=== PATIENT | female | born 1955 | race Caucasian/White ===

== ENCOUNTER 2016-05-13 11:15 | Inpatient (IN) | payer MEDICARE ==
[~2016-05-13] VITALS: Ht 160 cm; Wt 60.1 kg
[2016-05-13] VITALS (8 sets, daily range): BP systolic 120–141; BP diastolic 76–87; PULSE 88–101; RESP 19–26; TEMP 98.9; O2SAT 89–99
[~2016-05-13 11:15] MED LIST: ALBU0.086 INH; FLUO20SO3 PO; METH2.5 PO; METH4TAB6 PO; MOXI400T4 PO; NORC7.5T PO; PRED20 PO; SOMA350T PO; VENTAER INH; VITA400C28
--- NOTE | 2016-05-13 12:12 | RADRPT ---
EXAM DATE/TIME: 05/13/2016 11:46 [facility] COMPARISON: CHEST SINGLE AP, August 13, 2014, 1:00. INDICATIONS : Chest pain, shortness of breath MEDICAL HISTORY : Chronic obstructive pulmonary disease. Emphysema. SURGICAL HISTORY : None. ENCOUNTER: Initial ACUITY: 1 day PAIN SCORE: 10/10 LOCATION: Bilateral chest FINDINGS: The heart is normal in size. The mediastinal contours are within normal limits. There patchy areas of predominantly interstitial infiltrate throughout both lungs. I believe this likely represents asymme tric interstitial edema. This could also represent interstitial fibrosis. An underlying pneumonia is not excluded. The bony structures are grossly intact. CONCLUSION: 1. Patchy interstitial opacification as above. This is worrisome and appeared previous dated 08/13/49 Irvin Pacheco MD on May 13, 2016 at 12:10 Board Certified Radiologist. This report was verified electronically.
[2016-05-13 13:01] LABS: AUTOMATED NEUTROPHIL # 14.6 TH/MM3 (1.8-7.7); BASOPHIL % 0.2 % (0.0-2.0); EOSINOPHIL # 0.1 TH/MM3 (0-0.4); EOSINOPHIL % 0.5 % (0.0-4.0); HEMO FLAGS DIFF FINAL; LYMPH % 9.8 % (9.0-44.0); LYMPHOCYTE # 1.7 TH/MM3 (1.0-4.8); MEAN CELL VOLUME 102.2 FL (80.0-100.0); MEAN CORPUSCULAR HEMOGLOBIN 34.1 PG (27.0-34.0); MEAN CORPUSCULAR HGB CONC 33.3 % (32.0-36.0); NEUT % 82.5 % (16.0-70.0); PLATELET COUNT 301 TH/MM3 (150-450); RED BLOOD COUNT 4.31 MIL/MM3 (4.00-5.30); RED CELL DISTRIBUTION WIDTH 15.7 % (11.6-17.2); WHITE BLOOD COUNT 17.7 TH/MM3 (4.0-11.0)
--- NOTE | 2016-05-13 16:13 | PD ---
HPI Chief Complaint: Cardiac Complaint Time Seen by Provider: 15:29 Travel History International Travel<30 days: No Contact w/Intl Traveler<30days: No Traveled to known affect area: No History of Present Illness HPI 60-year-old female complains of coughing congestion chest pain and shortness of breath. Patient states that he started having productive cough for the past several days. Patient started having sharp severe left-sided chest pain localized around the left rib cage area with radiation to the back. Patient states the pain is worse with deep breathing and coughing. Patient has intermittent fever since last night. Patient states that she has intermittent nausea vomiting since last night also. Patient states that the cough is persistent and productive. Patient has history hypertension, COPD. Patient is a smoker. Patient has family history of heart disease. Patient states that she has increasing shortness of breath since last night. On a scale of 1-10 the pain is a 9. PFSH Past Medical History Arthritis: Yes Asthma: Yes Autoimmune Disease: Yes Blood Disorders: No Anxiety: Yes Depression: Yes Cancer: No Cardiac Catheterization: No Cardiovascular Problems: Yes COPD: Yes Diabetes: No Diminished Hearing: No Endocrine: No Fibromyalgia: Yes GERD: Yes Genitourinary: Yes (INCONTINENCE) Hepatitis: Yes (HX OF HEP-C DIAGNOSIS, BUT SUBSEQUENTLY STATES DOES NOT HAVE) Hiatal Hernia: No Hypertension: Yes Immune Disorder: Yes Implanted Vascular Access Dvce: No Medical other: Yes (OSTEOPOROSIS, SPINAL STENOSIS, ARTHRITIS, NEUROPATHY, GASTROPARESIS) Musculoskeletal: Yes (FX'D RT ANKLE, FIBROMYALGIA, DEGEN DISC DISEASE, SPINAL SPURS.) Neurologic: No Reproductive: No Respiratory: Yes (ASTHMA, COPD) Thyroid Disease: No Tetanus Vaccination: > 5 Years Influenza Vaccination: No ?: Not Menopausal: Yes Past Surgical History Abdominal Surgery: Yes (APPENDECTOMY/ADHESIONS) AICD: No Appendectomy: Yes Arteriovenous Shunt: No Cardiac Surgery: No Coronary Artery Bypass Graft: No Gynecologic Surgery: Yes (HYSTERECTOMY) Hysterectomy: Yes Insulin Pump: No Joint Replacement: No Neurologic Surgery: No Oral Surgery: Yes (TONSILLECTOMY, TEETH REMOVED) Pacemaker: No Thoracic Surgery: No Tonsillectomy: Yes Other Surgery: Yes (ORAL SURGERY, HERNIA REPAIR, STENT IN GALBLADDER) Social History Alcohol Use: No Tobacco Use: Yes (1/2 PPD) Substance Use: Yes (MARIJUANA) Allergies-Medications (Allergen,Severity, Reaction): Coded Allergies: Adhesives (Verified Allergy, Severe, causes blisters, 05/13/16) Morphine (Unverified Adverse Reaction, Severe, GASTROPARESIS, 05/13/16) Reported Meds & Prescriptions Reported Meds & Active Scripts Active Deltasone (Prednisone) 20 Mg Tab 40 Mg PO DAILY 5 Days Avelox (Moxifloxacin HCl) 400 Mg Tab 400 Mg PO DAILY 7 Days Reported Vitamin D (Cholecalciferol) 400 Unit Cap Medrol 4 Mg Tab (Methylprednisolone) 4 Mg Tab 4 Mg PO DAILY Prozac (Fluoxetine HCl) 20 Mg/5 Ml Liqd 10 Mg PO DAILY Rheumatrex (Methotrexate) 2.5 Mg Tab 0 PO UNKNOWN DOSE [place] 7.5/325 (Hydrocodone/Acetaminophen 7.5/325) 7.5 Mg/325 Mg Tab 1 Tab PO Q4H PRN Proventil Ud 0.083% (2.5 Mg/3 Ml) (Albuterol Sulfate) 2.5 Mg/3 Ml Inha 2.5 Mg INH BID Soma (Carisoprodol) 350 Mg Tab 350 Mg PO Q6HPRN Ventolin Hfa (Albuterol Sulfate) 18 Gm Aero 2 Puff INH Q4HPRN * SHAKE WELL BEFORE USE * Review of Systems General / Constitutional: No: Fever Eyes: No: Visual changes HENT: No: Headaches Cardiovascular: Positive: Chest Pain or Discomfort Respiratory: Positive: Cough, Shortness of Breath Gastrointestinal: No: Abdominal Pain Genitourinary: No: Dysuria Musculoskeletal: No: Pain Skin: No Rash Neurologic: No: Weakness Psychiatric: No: Depression Endocrine: No: Polydipsia Hematologic/Lymphatic: No: Easy Bruising Physical Exam Narrative GENERAL: Well-nourished, well-developed patient. SKIN: Warm and dry. HEAD: Normocephalic. EYES: No scleral icterus. No injection or drainage. NECK: Supple, trachea midline. No JVD or lymphadenopathy. CARDIOVASCULAR: Regular rate and rhythm without murmurs, gallops, or rubs. RESPIRATORY: Breath sounds equal bilaterally. No accessory muscle use. Patient has diffuse rhonchi bibasilar. No wheezes. GASTROINTESTINAL: Abdomen soft, non-tender, nondistended. MUSCULOSKELETAL: No cyanosis, or edema. BACK: Nontender without obvious deformity. No CVA tenderness. Neurologic exam normal. Data Data Last Documented VS Vital Signs Date Time Temp Pulse Resp B/P Pulse Ox O2 Delivery O2 Flow Rate FiO2 05/13/16 16:00 94 19 95 Room Air 05/13/16 15:59 126/87 05/13/16 11:29 98.9 Orders Electrocardiogram (05/13/16 ) Complete Blood Count With Diff (05/13/16 11:32) Basic Metabolic Panel (Bmp) (05/13/16 11:32) Ckmb (Isoenzyme) Profile (05/13/16 11:32) Troponin I (05/13/16 11:32) Chest, Single Ap (05/13/16 11:32) Iv Access Insert/Monitor (05/13/16 11:32) Ecg Monitoring (05/13/16 11:32) Oxygen Administration (05/13/16 11:32) Oximetry (05/13/16 11:32) Blood Culture (05/13/16 16:02) D-Dimer (05/13/16 16:02) Influenzae A/B Antigen (05/13/16 16:02) Sodium Chlor 0.9% 1000 Ml Inj (Ns 1000 M (05/13/16 16:15) Hydromorphone Pf Inj (Dilaudid Pf Inj) (05/13/16 16:15) Ondansetron Inj (Zofran Inj) (05/13/16 16:15) Lactic Acid (05/13/16 16:02) Ceftriaxone Inj (Rocephin Inj) (05/13/16 16:15) Azithromycin Inj (Zithromax Inj) (05/13/16 16:15) Labs Laboratory Tests Test 05/13/16 12:00 White Blood Count 17.7 TH/MM3 Red Blood Count 4.31 MIL/MM3 Hemoglobin 14.7 GM/DL Hematocrit 44.0 % Mean Corpuscular Volume 102.2 FL Mean Corpuscular Hemoglobin 34.1 PG Mean Corpuscular Hemoglobin 33.3 % Concent Red Cell Distribution Width 15.7 % Platelet Count 301 TH/MM3 Mean Platelet Volume 8.3 FL Neutrophils (%) (Auto) 82.5 % Lymphocytes (%) (Auto) 9.8 % Monocytes (%) (Auto) 7.0 % Eosinophils (%) (Auto) 0.5 % Basophils (%) (Auto) 0.2 % Neutrophils # (Auto) 14.6 TH/MM3 Lymphocytes # (Auto) 1.7 TH/MM3 Monocytes # (Auto) 1.2 TH/MM3 Eosinophils # (Auto) 0.1 TH/MM3 Basophils # (Auto) 0.0 TH/MM3 CBC Comment DIFF FINAL Differential Comment MDM Medical Decision Making Medical Screen Exam Complete: Yes Emergency Medical Condition: Yes Interpretation(s) 16 12 PM. Last Impressions Chest X-Ray 05/13/16 1132 Signed Impressions: Service Date/Time: April 11:46 - CONCLUSION: 1. Patchy interstitial opacification as above. This is worrisome and appeared previous dated 08/13/49 Irvin Pacheco MD 16 12 PM. CBC WBC 17.7. MCV 102.2. 82 neutrophil. Differential Diagnosis Differential diagnosis including bronchitis, pleurisy, pneumonia, PE, pneumothorax, angina, NH. Narrative Course 60-year-old female with left sided chest pain, coughing congestion, fever and shortness of breath. Normal saline solution 70 cc an hour. Dilaudid 0.5 mg IV. Zofran 4 mg IV. Rocephin 1 g IV. Zithromax 500 mg IV. Diagnosis Primary Impression: Pneumonia Rian Cherry MD May 13, 2016 16:13
[2016-05-13] MEDS ORDERED: cefTRIAXone INJ 1,000 MG in SODIUM CHLORIDE 0.9% INJ 50 ML IV ONE (16:15)
[2016-05-13] MEDS: HYDROmorphone HCL PF 1 MG/ML VIAL IV PUSH ONE ×2 (16:15→16:45)
[2016-05-13] MEDS: SODIUM CHLOR 0.9% 1000 ML INJ 1,000 ML IV SCH ×2 (16:44→17:46)
[2016-05-13] MEDS: AZITHROMYCIN INJ 500 MG in SODIUM CHLOR 0.9% 250 ML INJ 250 ML IV ONE ×2 (16:44→17:46)
[2016-05-13] MEDS: ONDANSETRON HCL 4 MG/2 ML VIAL IV PUSH ONE ×2 (16:45→17:47)
[2016-05-13] MEDS ORDERED: ACETAMINOPHEN 325 MG TAB PO PRN (17:00)
[2016-05-13] MEDS ORDERED: ONDANSETRON HCL 4 MG/2 ML VIAL IVP PRN (17:00)
[2016-05-13] MEDS ORDERED: BISACODYL 10 MG SUPP PR PRN (17:00)
[2016-05-13] MEDS ORDERED: NALOXONE HCL 0.4 MG/ML AMP IV PRN (17:00)
[2016-05-13] MEDS ORDERED: RESP: ALBUTEROL 2.5 MG/IPRATROPIUM 0.5 MG NEB (PRN) NEB (17:00)
[2016-05-13] MEDS ORDERED: MAGNESIUM HYDROXIDE SUSP 30 ML CUP PO PRN (17:00)
[2016-05-13] MEDS ORDERED: VENTAER INH (17:12)
[2016-05-13] MEDS ORDERED: ALBU0.08 NEB ×2 (17:12→17:53)
[2016-05-13] MEDS ORDERED: VITA1000 PO (17:12)
[2016-05-13] MEDS ORDERED: MEDR4TAB PO (17:12)
[2016-05-13] MEDS ORDERED: FLUO-1 PO (17:12)
[2016-05-13] MEDS ORDERED: SOMA350T PO (17:12)
[2016-05-13] MEDS ORDERED: METH5INJ (17:14)
[2016-05-13] MEDS ORDERED: HYDROmorphone HCL PF 1 MG/ML VIAL IM ONE (17:15)
[2016-05-13] MEDS ORDERED: HYDR-3288 PO (17:16)
--- NOTE | 2016-05-13 17:42 | HHI.HP ---
HPI Service [facility] Hospitalists Primary Care Physician Harsh Pate MD Admission Diagnosis pneumonia Chief Complaint: SOB, chest pain Travel History International Travel<30 Days: No Contact w/Intl Traveler <30 Da: No Traveled to Known Affected Are: No History of Present Illness Mrs. Crum is a 60 y/o female with COPD, pulmonary fibrosis, RA, Fibromyalgia, HTN, and tobacco use. She presented to the ED at [facility] on 05/13/16 with complaints of cough, congestion, SOB and chest pain for the last week or so [place] . She states that in the past few days her cough has become productive and she will have [id number] vomiting. She has also been having sharp left-sided chest pain localized around the left rib cage area with radiation to the back, which is worse with deep breathing and coughing. She has had some subjective fevers since last night. Patient states that she has increasing shortness of breath since last night as well. Labs at admission revealed an elevated WBC count of 17.7. CXR noted patchy interstitial opacification in both lungs, likely representing interstitial edema vs. interstitial fibrosis. D-Dimer was elevated and CT Chest was performed. This revealed moderate to severe pulmonary fibrosis, including basilar predominance, subpleural honeycombing, irregular interlobular septal thickening and traction bronchiectasis. There is also some focal consolidation in the left lower lobe with air bronchograms that could represent a superimposed area of pneumonia or aspiration. Review of Systems Constitutional: COMPLAINS OF: Fever, Chills Eyes: DENIES: Eye pain Ears, nose, mouth, throat: COMPLAINS OF: Nasal discharge, Running Nose, Sinus Pain, DENIES: Hearing loss Respiratory: COMPLAINS OF: Cough, Wheezing, Sputum production, Shortness of breath Cardiovascular: COMPLAINS OF: Chest pain, DENIES: Lower Extremity Edema Gastrointestinal: DENIES: Abdominal pain, Nausea, Vomiting Integumentary: DENIES: Rash Neurologic: DENIES: Headache Psychiatric: DENIES: Confusion Past Family Social History Past Medical History COPD/Pulmonary fibrosis Asthma HTN Chronic Hepatitis C, genotype 1a Fibromyalgia Gastroparesis GERD Hx of colon polyps Chronic low back pain Depression Rheumatoid arthritis ?Monoclonal gammopathy of undetermined significance CHACHO Past Surgical History Tonsillectomy and adenoidectomy YANNA with BSO Appendectomy Liver biopsy Multiple Laparoscopic surgeries with JOSEPH Carpal tunnel surgery with median nerve decompression, right hand 1987 Laparoscopic repair of spigelian hernia Bladder surgery for suspension and resection of ureteral diverticulum ERCP with stent placement and removal EUS EGD/colonoscopy Reported Medications [place] 7.5-325 mg PO Q8HR PRN Methotrexate Inj Unknown Strength Inj Unknown Dose .XX WEEKLY Medrol (Methylprednisolone) 4 Mg Tab 4 Mg PO BID Prozac (Fluoxetine HCl) 10 Mg Cap 30 Mg PO DAILY Vitamin D-1000 (Cholecalciferol) 1,000 Unit Tab 2,000 Units PO DAILY Soma (Carisoprodol) 350 Mg Tab 350 Mg PO Q8HR PRN Albuterol Neb (Albuterol Sulfate) 2.5 Mg/3 Ml Neb 2.5 Mg NEB BID NEB PRN While awake Ventolin Hfa 18 GM Inh (Albuterol Sulfate) 90 Mcg/Act Aer 2 Puff INH Q4H PRN Allergies: Coded Allergies: Adhesives (Verified Allergy, Severe, causes blisters, 05/13/16) Morphine (Unverified Adverse Reaction, Severe, GASTROPARESIS, 05/13/16) Family History Father from metastatic pancreatic cancer Brother had pancreatic cancer Brother with hx of colon cancer Sister with breast cancer Social History (+)Tobacco use, smoked about 1/2-1ppd since age 10 (+)Marijuana use daily Hx of IV drug use, including crack cocaine and heroin Social alcohol use Pt is currently She is unable to work and is on disability Physical Exam Vital Signs Vital Signs Date Time Temp Pulse Resp B/P Pulse Ox O2 Delivery O2 Flow Rate FiO2 05/13/16 16:45 93 21 120/84 95 Room Air 05/13/16 16:00 94 19 95 Room Air 05/13/16 15:59 97 19 126/87 95 Room Air 05/13/16 15:39 95 Room Air 05/13/16 11:29 98.9 94 26 141/76 99 Physical Exam GENERAL: This is a well-nourished, well-developed patient, in no apparent distress. HEENT: Atraumatic. Normocephalic. No temporal or scalp tenderness. No scleral icterus. Airway patent. NECK: Trachea midline, supple, nontender. CARDIO: Regular. RESP: Coarse breath sounds and wheezing bilaterally ABD: +BS, soft, non-tender, nondistended. EXT: Extremities without clubbing, cyanosis, or edema. NEURO: Awake and alert. Motor and sensory grossly within normal limits. Normal speech. Laboratory Laboratory Tests Test 05/13/16 05/13/16 12:00 16:14 White Blood Count 17.7 Red Blood Count 4.31 Hemoglobin 14.7 Hematocrit 44.0 Mean Corpuscular Volume 102.2 Mean Corpuscular Hemoglobin 34.1 Mean Corpuscular Hemoglobin 33.3 Concent Red Cell Distribution Width 15.7 Platelet Count 301 Mean Platelet Volume 8.3 Neutrophils (%) (Auto) 82.5 Lymphocytes (%) (Auto) 9.8 Monocytes (%) (Auto) 7.0 Eosinophils (%) (Auto) 0.5 Basophils (%) (Auto) 0.2 Neutrophils # (Auto) 14.6 Lymphocytes # (Auto) 1.7 Monocytes # (Auto) 1.2 Eosinophils # (Auto) 0.1 Basophils # (Auto) 0.0 CBC Comment DIFF FINAL Differential Comment D-Dimer Quantitative (PE/DVT) 2.66 Lactic Acid Level 1.6 Date/Time Procedure Status Source Growth 05/13/16 16:17 Influenza Types A,B Antigen (ADRIENNE) - Final Complete Nasal Washing NEGATIVE FOR FLU A AND B ANTIGEN.... 05/13/16 16:15 Aerobic Blood Culture Received Blood Peripheral Pending 05/13/16 16:15 Anaerobic Blood Culture Received Blood Peripheral Pending Result Diagram: 05/13/16 1200 Imaging Last Impressions Chest X-Ray 05/13/16 1132 Signed Impressions: Service Date/Time: April 11:46 - CONCLUSION: 1. Patchy interstitial opacification as above. This is worrisome and appeared previous dated 08/13/49 Irvin Pacheco MD Septic Shock Reassessment Heart: Regular rate and rhythm Lungs: Course Skin: Warm Peripheral Pulses: Bounding Right Radial Bounding Left Radial Bounding Right Popliteal Bounding Left Popliteal Bounding Right Dorsalis Pedis Bounding Left Dorsalis Pedis Bounding Right Posterior Tibial Bounding Left Posterior Tibial Capillary Refill: <2 seconds Assessment and Plan Problem List: (1) Pulmonary interstitial fibrosis Status: Chronic Plan: - Pt with COPD and pulmonary fibrosis who presented to the ED with complaints of SOB, cough, congestion, left sided chest pain which is worse with deep breathing and subjective fevers - Her WBC count is elevated at admission. - CXR (05/13) -->Patchy interstitial opacification - Chest CT (05/13) --> Moderate to severe pulmonary fibrosis, including basilar predominance, subpleural honeycombing, irregular interlobular septal thickening and traction bronchiectasis. There is also some focal consolidation in the left lower lobe with air bronchograms that could represent a superimposed area of pneumonia or aspiration. - Consult pulmonary medicine - Zithromax - Ceftriaxone - IVF - Duonebs scheduled and PRN - Supplemental O2 - Pain meds PRN - IS - Acapella - Supportive care - DVT prophylaxis with SCDs (2) Pneumonia Status: Acute Plan: - See above. (3) COPD (chronic obstructive pulmonary disease) Status: Chronic Plan: - See above. (4) HTN (hypertension) Status: Chronic Plan: - Hold home meds for now - BP is stable - PRN Clonidine (5) Rheumatoid arthritis Status: Chronic Plan: - Hold Methotrexate - Pain meds PRN (6) Depression Status: Chronic Plan: - Cont. home meds Assessment and Plan Patient examined. Assessment and plan formulated with Shara Roe PA-C. I agree with the above. Physician Certification 2 Midnight Certification Type: Admission for Inpatient Services Order for Inpatient Services The services are ordered in accordance with Medicare regulations or non- Medicare payer requirements, as applicable. In the case of services not specified as inpatient-only, they are appropriately provided as inpatient services in accordance with the 2-midnight benchmark. Estimated LOS (days): 3 3 days is the estimated time the patient will need to remain in the hospital, assuming treatment plan goals are met and no additional complications. Post-Hospital Plan: Not yet determined Shara Roe May 13, 2016 17:42 Domo Sampson DO May 15, 2016 14:36
--- NOTE | 2016-05-13 17:46 | RADRPT ---
EXAM DATE/TIME: 05/13/2016 17:23 [facility] COMPARISON: No previous studies available for comparison. INDICATIONS : Chest pain and shortness of breath. RADIATION DOSE: 5.1 CTDIvol (mGy) MEDICAL HISTORY : Chronic obstructive pulmonary disease. Hepatitis C. Hypertension. SURGICAL HISTORY : Tonsillectomy. Appendectomy.Hysterectomy. ENCOUNTER: Initial ACUITY: 1 day PAIN SCALE: 4/10 LOCATION: Bilateral chest TECHNIQUE: Volumetric scanning of the chest was performed. Using automated exposure control and adjustment of t he mA and/or kV according to patient size, radiation dose was kept as low as reasonably achievable to obtain optimal diagnostic quality images. FINDINGS: There are moderate to severe changes of ulnar fibrosis. The fibrosis is mildly basilar predominant an d is characterized by multiple areas of honeycombing. There is irregular interlobular septal thickeni ng and some traction bronchiectasis and bronchiolectasis especially in the lower lobes and in the rig ht upper lobe. There is also some more focal consolidation in the left lower lobe laterally. There are moderate coronary calcifications. No significant pleural or pericardial effusion. No acute findings in the upper abdomen. CONCLUSION: 1. Moderate to severe pulmonary fibrosis. The pattern of fibrosis including basilar predominance, sub pleural honeycombing, irregular interlobular septal thickening and traction bronchiectasis and bronch iolectasis is most characteristic idiopathic pulmonary fibrosis or usual interstitial pneumonitis. 2. There is also some more focal consolidation in the left lower lobe with air bronchograms that coul d represent a superimposed area of pneumonia or aspiration. Richar Bullock MD on May 13, 2016 at 17:41 Board Certified Radiologist. This report was verified electronically.
[2016-05-13] MEDS ORDERED: ALPR0.5T3 PO (17:53)
[2016-05-13] MEDS ORDERED: FORT600S SQ (17:53)
[2016-05-13] MEDS ORDERED: LISI10TA3 PO (17:53)
[2016-05-13] MEDS ORDERED: IPRA0.02 NEB (17:53)
[2016-05-13] MEDS ORDERED: HYDR200T3 PO (17:53)
[2016-05-13] MEDS ORDERED: VENL37.54 PO (17:53)
[2016-05-13 18:24] LABS: ANION GAP 10 MEQ/L (5-15); BICARBONATE 24.7 MEQ/L (21.0-32.0); BLOOD UREA NITROGEN 7 MG/DL (7-18); CHLORIDE 95 MEQ/L (98-107); GLOMERULAR FILTRATION RATE 67 ML/MIN (>89); SODIUM (NA) 130 MEQ/L (136-145)
[2016-05-13] MEDS ORDERED: RESP: IPRATROPIUM 0.5 MG/2.5 ML NEB NEB PRN (18:30)
[2016-05-13 18:32] LABS: CREATINE KINASE 46 U/L (26-192)
[2016-05-13] MEDS: ACETAMINOPHEN/HYDROcodone 325 MG/7.5 MG TAB PO PRN (19:27)
[2016-05-13] MEDS: ALPRAZolam 0.5 MG TAB PO PRN (19:59)
[2016-05-13] MEDS ORDERED: FLUoxetine HCL 10 MG CAP PO ONE (20:00)
[2016-05-13] MEDS: HYDROXYCHLOROQUINE SULFATE 200 MG TAB PO SCH (21:19)
[2016-05-13] MEDS: SODIUM CHLORIDE 0.9% FLUSH 5 ML FLUSH FLUSH SCH (21:25)
[2016-05-14] VITALS (9 sets, daily range): BP systolic 89–125; BP diastolic 52–71; PULSE 69–96; RESP 18–26; TEMP 96.7–97.6; O2SAT 93–95
[2016-05-14] MEDS: ACETAMINOPHEN/HYDROcodone 325 MG/7.5 MG TAB PO PRN ×2 (06:10→17:06)
[2016-05-14] MEDS: RESP: ALBUTEROL 2.5 MG/IPRATROPIUM 0.5 MG NEB (SCH) NEB (08:00)
[2016-05-14] MEDS: ALPRAZolam 0.5 MG TAB PO PRN ×2 (08:06→23:25)
[2016-05-14] MEDS ORDERED: VENLAFAXINE HCL XR 37.5 MG CAP PO SCH (09:00)
[2016-05-14] MEDS: SODIUM CHLORIDE 0.9% FLUSH 5 ML FLUSH FLUSH SCH ×2 (09:00→23:31)
[2016-05-14] MEDS: AZITHROMYCIN 250 MG TAB PO SCH (09:43)
[2016-05-14] MEDS: CHOLECALCIFEROL (VIT D3) 1000 UNIT TAB PO SCH (09:43)
[2016-05-14] MEDS: HYDROXYCHLOROQUINE SULFATE 200 MG TAB PO SCH ×2 (09:43→23:25)
[2016-05-14] MEDS: FLUoxetine HCL 10 MG CAP PO SCH (09:44)
--- NOTE | 2016-05-14 10:52 | RADRPT ---
EXAM DATE/TIME: 05/14/2016 08:01 [facility] COMPARISON: CHEST SINGLE AP, May 13, 2016, 11:46. CT THORAX W/O CONTRAST, May 13, 2016, 17:23. INDICATIONS : Shortness of breath. MEDICAL HISTORY : Chronic obstructive pulmonary disease. Emphysema. Asthma. SURGICAL HISTORY : None. ENCOUNTER: Initial ACUITY: 3 days PAIN SCORE: 0/10 LOCATION: Bilateral chest FINDINGS: Moderate hyperinflation is evident. Persistent interstitial changes remain. A lot of the interstit ial changes have the appearance of chronic fibrosis. There is probably some mild superimposed conges tive failure on top of this. Clinical correlation suggested. Overall there has been some improvement with better aeration. CONCLUSION: 1. Coarse interstitial changes probably fibrosis. 2. Probably mild interstitial edema superimposed over top of the fibrosis. 3. Minimal consolidative changes in the left base. Jose Pacheco MD FACR on May 14, 2016 at 10:30 Board Certified Radiologist. This report was verified electronically.
[2016-05-14] MEDS ORDERED: LORazepam 2 MG/ML VIAL IV PUSH PRN (13:00)
[2016-05-14] MEDS: SODIUM CHLOR 0.9% 1000 ML INJ 1,000 ML IV SCH (13:20)
[2016-05-14] MEDS: cefTRIAXone INJ 1,000 MG in SODIUM CHLORIDE 0.9% INJ 100 ML IV SCH (13:21)
--- NOTE | 2016-05-14 14:14 | HHI.PR ---
Subjective Remarks Pt very anxious. Demanding more pain medication for her acute illness. Pt's HR & BP are NOT elevated. Objective Vitals Vital Signs Date Time Temp Pulse Resp B/P Pulse Ox O2 Delivery O2 Flow Rate FiO2 05/14/16 10:57 83 108/71 05/14/16 07:41 81 26 98/62 Room Air 05/14/16 07:41 Room Air 05/14/16 07:25 3.00 05/14/16 06:49 18 05/14/16 06:09 72 18 123/67 94 Room Air 05/14/16 04:55 69 18 89/52 95 Room Air 05/14/16 04:00 Room Air 05/14/16 00:19 88 18 125/70 95 Room Air 3 05/13/16 23:41 94 05/13/16 21:26 18 05/13/16 19:24 101 20 126/85 94 05/13/16 18:20 88 20 122/80 95 Nasal Cannula 2 05/13/16 17:58 95 Nasal Cannula 2 05/13/16 17:58 89 Room Air 05/13/16 16:45 93 21 120/84 95 Room Air 05/13/16 16:00 94 19 95 Room Air 05/13/16 15:59 97 19 126/87 95 Room Air 05/13/16 15:39 95 Room Air Result Diagram: 05/13/16 1200 05/13/16 1608 Imaging Last Impressions Chest X-Ray 05/13/16 1132 Signed Impressions: Service Date/Time: April 11:46 - CONCLUSION: 1. Patchy interstitial opacification as above. This is worrisome and appeared previous dated 08/13/49 Irvin Pacheco MD Chest CT 05/13/16 0000 Signed Impressions: Service Date/Time: April 17:23 - CONCLUSION: 1. Moderate to severe pulmonary fibrosis. The pattern of fibrosis including basilar predominance, subpleural honeycombing, irregular interlobular septal thickening and traction bronchiectasis and bronchiolectasis is most characteristic idiopathic pulmonary fibrosis or usual interstitial pneumonitis. 2. There is also some more focal consolidation in the left lower lobe with air bronchograms that could represent a superimposed area of pneumonia or aspiration. Richar Bullock MD Objective Remarks GENERAL: This is a well-nourished, well-developed patient, in no apparent distress. CARDIOVASCULAR: Regular rate and rhythm without murmurs, gallops, or rubs. RESPIRATORY: decreased air movement x b/l. b/l rhonchi GASTROINTESTINAL: Abdomen soft, non-tender, nondistended. Normal active bowel sounds MUSCULOSKELETAL: Extremities without clubbing, cyanosis, or edema. NEURO: Alert & Oriented x4 to person, place, time, situation. Moves all ext x4 A/P Problem List: (1) Pulmonary interstitial fibrosis Status: Chronic Plan: - Pt with COPD and pulmonary fibrosis who presented to the ED with complaints of SOB, cough, congestion, left sided chest pain which is worse with deep breathing and subjective fevers - Her WBC count is elevated at admission. - CXR (05/13) -->Patchy interstitial opacification - Chest CT (05/13) --> Moderate to severe pulmonary fibrosis, including basilar predominance, subpleural honeycombing, irregular interlobular septal thickening and traction bronchiectasis. There is also some focal consolidation in the left lower lobe with air bronchograms that could represent a superimposed area of pneumonia or aspiration. - await pulmonary medicine consult - Zithromax - Ceftriaxone - Duonebs scheduled and PRN - currently stable on RA - Pain meds PRN - Pt seems to have significant anxiety component and likely narcotic dependency issues - I will start prn ativan, but do NOT believe that pt would benefit from increased narcotics pt's BP is trending low and do NOT want to further suppress her pulmonary status - IS - Acapella - Supportive care - anticipate discharge to home in 1-2 days. - DVT prophylaxis with SCDs (2) Pneumonia Status: Acute Plan: - See above. (3) COPD (chronic obstructive pulmonary disease) Status: Chronic Plan: - See above. (4) HTN (hypertension) Status: Chronic Plan: - Hold home meds for now - BP is stable - PRN Clonidine (5) Rheumatoid arthritis Status: Chronic Plan: - Hold Methotrexate - Pain meds PRN (6) Depression Status: Chronic Plan: - Cont. home meds Domo Sampson DO May 14, 2016 14:14
--- NOTE | 2016-05-14 17:12 | EKG ---
Date Performed: 05/13/2016 Time Performed: 11:57:01 PTAGE: 60 years EKG: Sinus rhythm LEFT ATRIAL ENLARGEMENT NONSPECIFIC ST & T-WAVE ABNORMALITY Compared to prior tracing no significant change ABNORMAL ECG PREVIOUS TRACING : 08/13/2014 01.23 DOCTOR: Naveed Wu Interpretating Date/Time 05/14/2016 17:01:39
[2016-05-14] MEDS: methylPREDNISolone SOD SUCC 40 MG/1 ML VIAL IV SCH (23:26)
[2016-05-15] VITALS (9 sets, daily range): BP systolic 83–133; BP diastolic 56–77; PULSE 66–97; RESP 17–20; TEMP 95.7–98.8; O2SAT 92–97
[2016-05-15] MEDS: ACETAMINOPHEN/HYDROcodone 325 MG/7.5 MG TAB PO PRN ×3 (01:35→21:54)
[2016-05-15 01:38] LABS: BLOOD GAS BASE EXCESS -0.7 mmol/L (-2-2); BLOOD GAS CARBOXYHEMOGLOBIN 2.2 % (0-4); BLOOD GAS HCO3 24 mmol/L (22-26); BLOOD GAS METHEMOGLOBIN 0.8 % (0-2); BLOOD GAS O2 HGB SATURATION 76 % (90-100); BLOOD GAS PCO2 41 mmHg (38-42); BLOOD GAS PO2 47 mmHg (61-120); BLOOD GAS TOTAL HGB 19.7 G/DL (12.0-16.0); TEMP CORR TO 98.6
[2016-05-15 01:40] LABS: CRITICAL VALUE YES; FIO2 21 %; OXYGEN DEVICE ROOM AIR
[2016-05-15 01:41] LABS: DRAW SITE RT RADIAL; NUMBER OF ARTERIAL PUNCTURES 1; STAT NO; ULNAR PULSE PRESENT
[2016-05-15 06:45] LABS: BASOPHIL % 0.2 % (0.0-2.0); EOSINOPHIL % 0.1 % (0.0-4.0); HEMATOCRIT 37.2 % (35.0-46.0); HEMO FLAGS DIFF FINAL; LYMPH % 4.4 % (9.0-44.0); LYMPHOCYTE # 0.4 TH/MM3 (1.0-4.8); MEAN CELL VOLUME 101.7 FL (80.0-100.0); MEAN CORPUSCULAR HEMOGLOBIN 34.5 PG (27.0-34.0); MONO % 2.1 % (0.0-8.0); NEUT % 93.2 % (16.0-70.0); PLATELET COUNT 258 TH/MM3 (150-450); RED BLOOD COUNT 3.66 MIL/MM3 (4.00-5.30); RED CELL DISTRIBUTION WIDTH 15.9 % (11.6-17.2); WHITE BLOOD COUNT 8.6 TH/MM3 (4.0-11.0)
[2016-05-15] MEDS: SODIUM CHLORIDE 0.9% FLUSH 5 ML FLUSH FLUSH PRN (07:04)
[2016-05-15] MEDS: methylPREDNISolone SOD SUCC 40 MG/1 ML VIAL IV SCH ×2 (07:04→12:13)
[2016-05-15 07:08] LABS: MAGNESIUM 2.3 MG/DL (1.5-2.5); POTASSIUM 4.3 MEQ/L (3.5-5.1)
--- NOTE | 2016-05-15 07:51 | MB ---
cc: HENRRY MARTINEZ DR. DATE OF CONSULTATION: 05/14/2016 REASON FOR CONSULTATION: Respiratory insufficiency with pulmonary fibrosis and chronic obstructive pulmonary disease. HISTORY OF PRESENT ILLNESS: This is a 60-year-old lady who has had a past history for pulmonary fibrosis, chronic obstructive pulmonary disease and rheumatoid arthritis with fibromyalgia, she has been a smoker for over 40 years. The patient was unable to quit, she presented to the emergency room with cough, congestion, shortness of breath, wheezing and chest tightness. The patient has had pain along both sides of her chest radiating into the back and this got worse with taking deep breaths. She was also having some fevers and chills and thus came to the emergency room a chest CT was done upon arrival which showed no evidence of pulmonary emboli but had moderately severe pulmonary fibrosis with basilar predominance and honeycombing and interlobular septal thickening with bronchiectasis. There was some focal consolidation in the left lower lobe suggesting pneumonia. The patient is coughing but brings up very little mucus. Denies fevers at this time. No hemoptysis. No headaches or blackouts. PAST HISTORY The patient's past history has included history for chronic obstructive pulmonary disease. Chronic bronchitis Pulmonary fibrosis History of asthma Prior history of hypertension. She has had hepatitis C, Genotype 1a. History of gastroparesis. Colon polyps Depression Rheumatoid arthritis Obstructive sleep apnea. The patient has monoclonal gammopathy. PAST SURGICAL HISTORY: 1. Includes tonsillectomy and adenoidectomy 2. Total abdominal hysterectomy with salpingo-oophorectomy. 3. Appendectomy 4. Liver biopsy 5. History of repair of hernia 6. Bladder surgery with suspension 7. History for colonoscopy 8. Endoscopic retrograde cholangiopancreatography. MEDICATIONS: 1. Medrol 4 mg b.i.d. 2. soma compound 350 mg every 8 hours 3. albuterol neb q.i.d. 4. methotrexate 6 tablets daily 5. [place] 7 mg p.r.n. 6. Prozac 30 mg a day. ALLERGIES MORPHINE ADHESIVE TAPE FAMILY HISTORY Father of pancreatic cancer, one brother with pancreatic cancer and another brother with colon cancer and the sister with breast cancer. HABITS The patient smoked half to one-pack per day for over 50 years and marijuana use daily. history of cocaine abuse. Alcohol abuse moderate. REVIEW OF SYSTEMS Other system review the patient has lost weight. She has dizziness, postnasal drip, cough and wheezing, epigastric distress. No nausea, vomiting, no urinary symptoms. No leg or calf muscle pains. She has some joint pains of her extremities and denies skin lesions. PHYSICAL EXAMINATION IN GENERAL: This is a thinly built, middle-aged white female who is alert, pale in no acute distress. VITAL SIGNS: Blood pressure 125/80, pulse 94, respirations 20, temperature 97.5. HEAD, EYES, EARS, NOSE, AND THROAT: Head normocephalic. Pupils reactive. Sclerae are injected. Tongue is moist. Throat is mildly injected. NECK: The neck is supple. No bruits or thyroid enlargement. CHEST: Equal movements with distant breath sounds. Wheezes are scattered bilaterally prolonged expirations with crackles at the lung bases. HEART: The heart sounds are regular S1-S2. No murmur. No S3. ABDOMEN: The abdomen is soft, benign. No masses or organomegaly or tenderness. Bowel sounds active. EXTREMITIES: Extremities with no edema. Reflexes 1+ with no gross motor deficits. NEUROLOGIC: Cranial nerves grossly intact. RECTUM: The rectal exam is deferred. SKIN: No lesions. IMPRESSION 1. Chronic obstructive pulmonary disease with chronic bronchitis and acute exacerbation. 2. Extensive pulmonary fibrosis with bronchiectasis. 3. Nicotine dependency. 4. Anxiety and depression. PLAN The patient will be maintained on O2 at 2 liters nebulized DuoNeb solution added q.i.d., Symbicort 160 x 4.5, 2 puffs twice daily. A Chest x-ray will be repeated, a pulmonary function study will be done at the bedside. Sputum will be sent for Gram stain and culture and she will be placed on Rocephin 1 gram IV daily and Zithromax 500 mg IV daily. Arterial blood gas to be done on room air and O2, continued after that. The patient was counseled about quitting cigarette smoking. Thank you Dr. Sampson for this consultation. MD NAEL Denis/kelly /11:39 PM /7:43 AM
[2016-05-15] MEDS: RESP: ALBUTEROL 2.5 MG/IPRATROPIUM 0.5 MG NEB (SCH) NEB ×3 (08:28→19:53)
[2016-05-15] MEDS: AZITHROMYCIN 250 MG TAB PO SCH (09:17)
[2016-05-15] MEDS: cefTRIAXone INJ 1,000 MG in SODIUM CHLORIDE 0.9% INJ 100 ML IV SCH (09:17)
[2016-05-15] MEDS: CHOLECALCIFEROL (VIT D3) 1000 UNIT TAB PO SCH (09:17)
[2016-05-15] MEDS: HYDROXYCHLOROQUINE SULFATE 200 MG TAB PO SCH ×2 (09:17→21:54)
[2016-05-15] MEDS: FLUoxetine HCL 10 MG CAP PO SCH (09:17)
[2016-05-15] MEDS: ALPRAZolam 0.5 MG TAB PO PRN ×2 (09:18→21:53)
[2016-05-15] MEDS: SODIUM CHLORIDE 0.9% FLUSH 5 ML FLUSH FLUSH SCH ×2 (09:19→21:57)
--- NOTE | 2016-05-15 14:37 | HHI.PR ---
Subjective Remarks Entered pt room with floor nurse. Pt too busy on the phone to talk with me today. Objective Vitals Vital Signs Date Time Temp Pulse Resp B/P Pulse Ox O2 Delivery O2 Flow Rate FiO2 05/15/16 12:00 97.7 82 20 91/56 92 05/15/16 08:30 94 21 05/15/16 08:00 95.7 69 17 104/63 94 05/15/16 04:00 97.7 66 18 89/64 96 83/58 05/15/16 00:00 96.7 89 18 104/68 95 05/14/16 20:54 96.7 89 18 104/68 95 05/14/16 18:00 92 05/14/16 17:00 97.6 96 22 109/66 94 05/14/16 15:00 88 24 108/59 93 Nasal Cannula 2 05/14/16 05/14/16 05/15/16 15:00 23:00 07:00 Intake Total 120 ml Balance 120 ml Intake Oral 120 ml # Voids 5 Result Diagram: 05/15/16 0546 05/15/16 0546 Imaging Last Impressions Chest X-Ray 05/13/16 1132 Signed Impressions: Service Date/Time: April 11:46 - CONCLUSION: 1. Patchy interstitial opacification as above. This is worrisome and appeared previous dated 08/13/49 Irvin Pacheco MD Chest CT 05/13/16 0000 Signed Impressions: Service Date/Time: April 17:23 - CONCLUSION: 1. Moderate to severe pulmonary fibrosis. The pattern of fibrosis including basilar predominance, subpleural honeycombing, irregular interlobular septal thickening and traction bronchiectasis and bronchiolectasis is most characteristic idiopathic pulmonary fibrosis or usual interstitial pneumonitis. 2. There is also some more focal consolidation in the left lower lobe with air bronchograms that could represent a superimposed area of pneumonia or aspiration. Richar Bullock MD Objective Remarks GENERAL: This is a well-nourished, well-developed patient, in no apparent distress. CARDIOVASCULAR: Regular rate and rhythm without murmurs, gallops, or rubs. RESPIRATORY: decreased air movement x b/l. b/l rhonchi GASTROINTESTINAL: Abdomen soft, non-tender, nondistended. Normal active bowel sounds MUSCULOSKELETAL: Extremities without clubbing, cyanosis, or edema. NEURO: Alert & Oriented x4 to person, place, time, situation. Moves all ext x4 A/P Problem List: (1) Pulmonary interstitial fibrosis Status: Chronic Plan: - comgmt with Pulmonary Medicine - Pt with COPD and pulmonary fibrosis who presented to the ED with complaints of SOB, cough, congestion, left sided chest pain which is worse with deep breathing and subjective fevers - Her WBC count is elevated at admission. - CXR (05/13) -->Patchy interstitial opacification - Chest CT (05/13) --> Moderate to severe pulmonary fibrosis, including basilar predominance, subpleural honeycombing, irregular interlobular septal thickening and traction bronchiectasis. There is also some focal consolidation in the left lower lobe with air bronchograms that could represent a superimposed area of pneumonia or aspiration. - IV solumedrol - Zithromax - Ceftriaxone - Duonebs scheduled and PRN - currently stable on RA - Pain meds PRN - Pt seems to have significant anxiety component and likely narcotic dependency issues - prn benzodiazepine - blood culture --> NGTD - IS - Acapella - Supportive care - anticipate discharge to home in 1-2 days. - DVT prophylaxis with SCDs (2) Pneumonia Status: Acute Plan: - See above. (3) COPD (chronic obstructive pulmonary disease) Status: Chronic Plan: - See above. (4) HTN (hypertension) Status: Chronic Plan: - Hold home meds for now - BP is stable - PRN Clonidine (5) Rheumatoid arthritis Status: Chronic Plan: - Hold Methotrexate - Pain meds PRN (6) Depression Status: Chronic Plan: - Cont. home meds Domo Sampson DO May 15, 2016 14:37
--- NOTE | 2016-05-15 18:43 | HHI.PR ---
Subjective Remarks Feels better. Less cough and no wheezing. Sputum is thick. No fever. Objective Vital Signs Date Time Temp Pulse Resp B/P Pulse Ox O2 Delivery O2 Flow Rate FiO2 05/15/16 16:00 97.4 97 18 121/77 95 05/15/16 12:00 97.7 82 20 91/56 92 05/15/16 08:30 94 21 05/15/16 08:00 95.7 69 17 104/63 94 05/15/16 04:00 97.7 66 18 89/64 96 83/58 05/15/16 00:00 96.7 89 18 104/68 95 05/14/16 20:54 96.7 89 18 104/68 95 I/O 05/14/16 05/14/16 05/14/16 05/15/16 05/15/16 05/15/16 07:00 15:00 23:00 07:00 15:00 23:00 Intake Total 120 ml 480 ml Balance 120 ml 480 ml Intake Oral 120 ml 480 ml # Voids 5 2 # Bowel Movements 1 Result Diagram: 05/15/16 0546 05/15/16 0546 Objective Remarks IN GENERAL: This is a thinly built, middle-aged white female who is alert, pale in no acute distress. VITAL SIGNS: Blood pressure 125/80, pulse 94, respirations 20, temperature 97.5. HEAD, EYES, EARS, NOSE, AND THROAT: Head normocephalic. Pupils reactive. Sclerae are injected. Tongue is moist. Throat is mildly injected. NECK: The neck is supple. No bruits or thyroid enlargement. CHEST: Equal movements with distant breath sounds. Wheezes are scattered bilaterally prolonged expirations with crackles at the lung bases. HEART: The heart sounds are regular S1-S2. No murmur. No S3. ABDOMEN: The abdomen is soft, benign. No masses or organomegaly or tenderness. Bowel sounds active. EXTREMITIES: Extremities with no edema.Has clubbing of all Extremities. NEUROLOGIC: Cranial nerves grossly intact.Reflexes 1+ with no gross motor deficits. RECTUM: The rectal exam is deferred. SKIN: No lesions. Assessment and Plan Assessment and Plan Impression: 1. COPD with acute exacerbation. 2. Pulmonary Fibrosis. 3.Nicotine Dependancy. 4. Rheumatoid Arthritis. Plan ; 1. Continue antibiotics, Rocephin , Zithro. 2. Nebs qid , duoneb. 3. Cont Solumedrol 40 mg IV Q6H. 4. PFT in am. 5. Symbicort 160/4.5 Mcg , 2 puffs bid. 6. CBc,BMP in am. 7. Add Hycodan Cough syrup 5 CC QID Prn. Lolita Ulloa MD May 15, 2016 18:43
[2016-05-15] MEDS ORDERED: HYDROcodone 5 MG/HOMATROPINE 1.5 MG SYRUP 5 ML CUP PO PRN (18:45)
[2016-05-16] VITALS: BP 116/79; PULSE 90; RESP 22; TEMP 97.9; O2SAT 96
[2016-05-16] MEDS: methylPREDNISolone SOD SUCC 40 MG/1 ML VIAL IV SCH ×3 (00:56→12:12)
[2016-05-16] MEDS: SODIUM CHLORIDE 0.9% FLUSH 5 ML FLUSH FLUSH PRN ×2 (00:57→05:49)
[2016-05-16 05:30] VITALS: BP 122/81; PULSE 72; RESP 16; TEMP 98.8; O2SAT 96
[2016-05-16] MEDS: FLUoxetine HCL 10 MG CAP PO SCH (08:07)
[2016-05-16] MEDS: ACETAMINOPHEN/HYDROcodone 325 MG/7.5 MG TAB PO PRN (08:07)
[2016-05-16] MEDS: ALPRAZolam 0.5 MG TAB PO PRN (08:08)
[2016-05-16] MEDS: CHOLECALCIFEROL (VIT D3) 1000 UNIT TAB PO SCH (08:08)
[2016-05-16] MEDS: cefTRIAXone INJ 1,000 MG in SODIUM CHLORIDE 0.9% INJ 100 ML IV SCH (08:08)
[2016-05-16] MEDS: SODIUM CHLORIDE 0.9% FLUSH 5 ML FLUSH FLUSH SCH (08:08)
[2016-05-16] MEDS: AZITHROMYCIN 250 MG TAB PO SCH (08:08)
[2016-05-16] MEDS: HYDROXYCHLOROQUINE SULFATE 200 MG TAB PO SCH (08:08)
[2016-05-16] MEDS: RESP: ALBUTEROL 2.5 MG/IPRATROPIUM 0.5 MG NEB (SCH) NEB ×2 (08:28→11:08)
[2016-05-16 08:29] VITALS: BP 125/79; PULSE 80; RESP 18; TEMP 96; O2SAT 96
[2016-05-16 10:21] VITALS: O2SAT 97
[2016-05-16 12:17] VITALS: BP 123/87; PULSE 95; RESP 18; TEMP 96; O2SAT 98
[2016-05-16] MEDS ORDERED: LEVA500T PO (14:20)
[2016-05-16] MEDS ORDERED: HYCOS PO (14:20)
[2016-05-16] MEDS ORDERED: ALBU0.08 NEB (14:20)
[2016-05-16] MEDS ORDERED: IPRA0.02 NEB (14:20)
[2016-05-16] MEDS ORDERED: PRED20 PO (14:21)
--- NOTE | 2016-05-16 14:23 | HHI.DCPOC ---
Discharge Care Plan Diagnosis: (1) Pneumonia (2) COPD (chronic obstructive pulmonary disease) (3) Pulmonary interstitial fibrosis Goals to Promote Your Health * To prevent worsening of your condition and complications * To maintain your health at the optimal level Directions to Meet Your Goals Take your medications as prescribed Follow your dietary instruction Follow activity as directed Keep your appointments as scheduled Take your immunizations and boosters as scheduled If your symptoms worsen call your PCP, if no PCP go to Urgent Care Center or Emergency Room Smoking is Dangerous to Your Health. Avoid second hand smoke Call the 24-hour hour crisis hotline for domestic abuse at Domo Sampson DO May 16, 2016 14:23
--- NOTE | 2016-05-16 14:47 | HHI.DS ---
Discharge Summary Admission Date May 13, 2016 at 16:57 Admitting Diagnosis pneumonia (1) Pulmonary interstitial fibrosis Diagnosis: Principal (2) Pneumonia Diagnosis: Principal (3) COPD (chronic obstructive pulmonary disease) Diagnosis: Principal (4) HTN (hypertension) Diagnosis: Secondary (5) Rheumatoid arthritis Diagnosis: Secondary (6) Depression Diagnosis: Secondary Consultants Dr. Bernardo Ulloa, Pulmonary Medicine Brief History Mrs. Crum is a 60 y/o female with COPD, pulmonary fibrosis, RA, Fibromyalgia, HTN, and tobacco use. She presented to the ED at [facility] on 05/13/16 with complaints of cough, congestion, SOB and chest pain for the last week or so while she was [place] for her [place] . She states that in the past few days her cough has become productive and she will have [id number] vomiting. She has also been having sharp left-sided chest pain localized around the left rib cage area with radiation to the back, which is worse with deep breathing and coughing. She has had some subjective fevers since last night. Patient states that she has increasing shortness of breath since last night as well. Labs at admission revealed an elevated WBC count of 17.7. CXR noted patchy interstitial opacification in both lungs, likely representing interstitial edema vs. interstitial fibrosis. D-Dimer was elevated and CT Chest was performed. This revealed moderate to severe pulmonary fibrosis, including basilar predominance, subpleural honeycombing, irregular interlobular septal thickening and traction bronchiectasis. There is also some focal consolidation in the left lower lobe with air bronchograms that could represent a superimposed area of pneumonia or aspiration. CBC/BMP: 05/15/16 0546 05/15/16 0546 Significant Findings Laboratory Tests Test 05/13/16 05/13/16 05/15/16 05/15/16 16:08 16:14 01:24 05:46 Sodium Level 130 MEQ/L (136-145) Chloride Level 95 MEQ/L (98-107) Estimat Glomerular Filtration 67 ML/MIN (>89) 74 ML/MIN (>89) Rate Troponin I LESS THAN 0.02 NG/ML (0.02-0.05) D-Dimer Quantitative (PE/DVT) 2.66 MG/L FEU (0.00-0.50) Blood Gas Oxygen Saturation 76 % (90-100) Arterial Blood Partial 47 mmHg Pressure O2 (61-120) Arterial Blood Oxygen Content 21.0 Vol % (12.0-20.0) Blood Gas Hemoglobin 19.7 G/DL (12.0-16.0) Red Blood Count 3.66 MIL/MM3 (4.00-5.30) Mean Corpuscular Volume 101.7 FL (80.0-100.0) Mean Corpuscular Hemoglobin 34.5 PG (27.0-34.0) Neutrophils (%) (Auto) 93.2 % (16.0-70.0) Lymphocytes (%) (Auto) 4.4 % (9.0-44.0) Neutrophils # (Auto) 8.0 TH/MM3 (1.8-7.7) Lymphocytes # (Auto) 0.4 TH/MM3 (1.0-4.8) Blood Urea Nitrogen 6 MG/DL (7-18) Random Glucose 185 MG/DL (74-106) PE at Discharge GENERAL: This is a well-nourished, well-developed patient, in no apparent distress. CARDIOVASCULAR: Regular rate and rhythm without murmurs, gallops, or rubs. RESPIRATORY: decreased air movement x b/l. b/l rhonchi GASTROINTESTINAL: Abdomen soft, non-tender, nondistended. Normal active bowel sounds MUSCULOSKELETAL: Extremities without clubbing, cyanosis, or edema. NEURO: Alert & Oriented x4 to person, place, time, situation. Moves all ext x4 Hospital Course (1) Pulmonary interstitial fibrosis Status: Chronic Plan: - comgmt with Pulmonary Medicine - Pt with COPD and pulmonary fibrosis who presented to the ED with complaints of SOB, cough, congestion, left sided chest pain which is worse with deep breathing and subjective fevers - Her WBC count is elevated at admission, but quickly resolved - CXR (05/13) -->Patchy interstitial opacification - Chest CT (05/13) --> Moderate to severe pulmonary fibrosis, including basilar predominance, subpleural honeycombing, irregular interlobular septal thickening and traction bronchiectasis. There is also some focal consolidation in the left lower lobe with air bronchograms that could represent a superimposed area of pneumonia or aspiration. - Pt received: - IV solumedrol - Zithromax - Ceftriaxone - Duonebs scheduled and PRN - currently stable on RA - Pain meds PRN - Pt seems to have significant anxiety component and likely narcotic dependency issues - prn benzodiazepine - blood culture --> NGTD - Pt requesting discharge - I will discharge pt on levaquin 500mg daily x 7d, prednisone taper, and narcotic cough medicine - f/u with PCP in 1 week, Dr. Hannon - F/u with Pulm Med, Dr. Ulloa in 2 weeks - Pt strongly counselled on the importance of smoking cessation - given pt's pulmonary fibrosis and poor medical insight, pt is at high risk for readmission (2) Pneumonia Status: Acute Plan: - See above. (3) COPD (chronic obstructive pulmonary disease) Status: Chronic Plan: - See above. (4) HTN (hypertension) Status: Chronic Plan: - Hold home meds for now - BP is stable - PRN Clonidine (5) Rheumatoid arthritis Status: Chronic Plan: - Hold Methotrexate - Pain meds PRN (6) Depression Status: Chronic Plan: - Cont. home meds Pt Condition on Discharge: Stable Discharge Disposition: Discharge Home Discharge Instructions DIET: Follow Instructions for: As Tolerated, No Restrictions Activities you can perform: Regular-No Restrictions Follow up Referrals: PCP Follow-up - [address] Anirudh Hannon Pulmonology - 2 Weeks with Lolita Ulloa MD New Medications: Levofloxacin (Levaquin) 500 Mg Tab 500 MG PO DAILY Infection #7 Ref 0 TAB Prednisone (Prednisone) 20 Mg Tab 20 MG PO DIRECTED Take 60 MG daily x 4 days, then 40 MG x 4 days, then 20 MG daily x 4 days. copd #24 Ref 0 TAB Hydrocodone-Homatropine Liq (Hydromet Liq) 5-1.5 Mg/5 Ml Syrp 5 ML PO Q6H PRN COUGH #1 Ref 0 ML Changed Medications: Albuterol Neb (Albuterol Neb) 2.5 Mg/3 Ml Neb 2.5 MG NEB Q6HR NEB use with atrovent nebule copd #60 Ref 0 NEBULE (Changed from : Removed Reason) Ipratropium Neb (Ipratropium Neb) 0.5 Mg/2.5 Ml Amp 0.5 MG NEB Q6HR NEB use with albuterol nebules copd #120 Ref 0 NEBULE (Changed from: Removed Reason) Continued Medications: Albuterol 18 GM Inh (Ventolin Hfa 18 GM Inh) 90 Mcg/Act Aer 2 PUFF INH Q4H PRN SHORTNESS OF BREATH #1 Ref 0 INHALER Alprazolam (Alprazolam) 0.5 Mg Tab 0.5 MG PO HS PRN ANXIETY Ref 0 TAB Cholecalciferol (Vitamin D-1000) 1,000 Unit Tab 2000 UNITS PO DAILY Nutritional Supplement #1 Ref 0 BOTTLE Hydrocodone-Acetaminophen ([place]) 7.5-325 mg Tab 1 TAB PO Q8HR PRN PAIN Ref 0 TAB Hydroxychloroquine (Hydroxychloroquine) 200 Mg Tab 200 MG PO BID Takw with food #60 Ref 0 TAB Methotrexate Inj (Methotrexate Inj) Unknown Strength Inj Unknown Dose .XX WEEKLY Teriparatide (Recombinant) Inj ([place] Inj) 600 Mcg/2.4 Ml Pen 20 MCG SQ DAILY Osteoporosis Ref 0 PEN Venlafaxine ER 24 HR (Venlafaxine ER 24 HR) 37.5 Mg Tab 37.5 MG PO DAILY #30 Ref 0 TAB Discontinued Medications: Albuterol Neb (Albuterol Neb) 2.5 Mg/3 Ml Neb 2.5 MG NEB BID NEB While awake PRN SHORTNESS OF BREATH #60 Ref 0 NEBULE Carisoprodol (Soma) 350 Mg Tab 350 MG PO Q8HR PRN PAIN Ref 0 TAB Fluoxetine (Prozac) 10 Mg Cap 60 MG PO DAILY #30 Ref 0 CAP Lisinopril (Lisinopril) 10 Mg Tab 10 MG PO DAILY #30 Ref 0 TAB Methylprednisolone (Medrol) 4 Mg Tab 4 MG PO BID Ref 0 TAB Domo Sampson DO May 16, 2016 14:47
== END 2016-05-16 15:17 | disposition home or self-care (01) | DRG 194 ==
LOC: NEPD 11:15 → NEDA 16:57 → NEDH 21:00 → N05B 05-14 16:44
PROVIDERS: ADMIT Hospitalist; ATTEND Hospitalist
DX: J18.9 Pneumonia, unspecified organism (principal); J44.0 Chronic obstructive pulmonary disease with (acute) lower respiratory infection; J84.10 Pulmonary fibrosis, unspecified; J44.1 Chronic obstructive pulmonary disease with (acute) exacerbation; K31.84 Gastroparesis; I10 Essential (primary) hypertension; M06.9 Rheumatoid arthritis, unspecified; M79.7 Fibromyalgia; F32.9 Major depressive disorder, single episode, unspecified; J45.909 Unspecified asthma, uncomplicated; B19.20 Unspecified viral hepatitis C without hepatic coma; G47.33 Obstructive sleep apnea (adult) (pediatric)
CPT/HCPCS: 36600; 71010; 71020; 71250; 76937; 80048; 82550; 82805; 83605; 83735; 84484; 85025; 85379; 87040; 87804; 93005; 94150; 94640; 94664; 94667; 94668; J0456; J0696; J1170; J2060; J2405; J2920; J7030; J7050

== ENCOUNTER → 2016-10-05 | Day surgery (SDC) | payer MEDICARE ==
[~2016-10-05] MED LIST changes: +*HYDROmorphone PF 1 MG VIAL PERIprocedural Use ONLY ONE; +ACETAMINOPHEN 1000 MG/100 ML VIAL IV ONE; +ACETAMINOPHEN 1000 MG/100 ML VIAL IV SCH; +ALBU0.08 NEB; -ALBU0.086 INH; +ALPR0.5T3 PO; +BUPIVACAINE LIPOSOME PF 1.3% 20 ML VIAL ONE; +BUPIVACAINE/EPINEPHRINE 0.25% 50 ML VIAL INFIL ONE; +CHLORHEXIDINE GLUCONATE 2 % 1 PACK (2 CLOTHS) TOPICAL PRN; +DO NOT ADM ANY ANTICOAGULANT DRUGS PRN; -FLUO20SO3 PO; +FORT600S SQ; +HYCOS PO; +HYDR-3288 PO; +HYDR200T3 PO; +INSULIN HUMAN REGULAR 1,000 UNITS/10 ML VIAL SQ PRN; +IPRA0.02 NEB; +KETOROLAC TROMETHAMINE 30 MG/ML (IVP) VIAL IV PUSH ONE; +KETOROLAC TROMETHAMINE 30 MG/ML (IVP) VIAL ONE; +LACTATED RINGER'S 1000 ML INJ 1,000 ML IV ONE; +LACTATED RINGER'S 1000 ML IV PRN; +LEVA500T PO; +LISI10TA3 PO; -METH2.5 PO; -METH4TAB6 PO; +METH5INJ; +METOPROLOL TARTRATE 25 MG TAB PO PRN; +MORPHINE SULFATE 4 MG/ML INJ IV PRN; -MOXI400T4 PO; +NEOSTIGMINE 3 MG/3 ML SYR IV ONE; -NORC7.5T PO; +ONDANSETRON HCL 4 MG/2 ML VIAL IV PRN; +ONDANSETRON HCL 4 MG/2 ML VIAL IV PUSH ONE; +PHENYLEPH/NS 1000 MCG/10 ML SYR IV ONE; +POVIDONE IODINE 5% (ANTISEPSIS KIT) 4 APPLICATIONS EACH NARE PRN; +PROPOFOL 200 MG/20 ML AMP IV ONE; +PROZ20CA11 PO; +SODIUM CHLORID 0.9% 500 ML IV PRN; +SODIUM CHLORIDE 0.9% FLUSH 10 ML FLUSH IV FLUSH PRN; +SODIUM CHLORIDE 0.9% FLUSH 10 ML FLUSH IV FLUSH SCH; +VENL37.54 PO; +VITA1000 PO; -VITA400C28; +ceFAZolin 2 GM PREMIX 50 ML IV SCH; +ceFAZolin 2 GM PREMIX 50 ML ONE; +ePHEDrine/NS 25 MG/5 ML SYR IV ONE; +fentaNYL CITRATE 250 MCG/5 ML AMP ONE; +oxyCODONE/ACETAMINOPHEN 5 MG/325 MG TAB PO PRN
[2016-10-05 10:22] VITALS: BP 114/74; PULSE 86; RESP 20; TEMP 97.7; O2SAT 95
--- NOTE | 2016-10-05 16:11 | PD.OP ---
cc: Sunil Easton MD Operative Report Date of Surgery: Oct 05, 2016 Preoperative Diagnosis: Right spigelian hernia Postoperative Diagnosis: Right spigelian hernia Procedure: Laparoscopic lysis of adhesions and repair of right spigelian hernia with ventral light ST mesh Anesthesia: General endotracheal Surgeon: Sunil Easton Drywall Sprayer(s): Magy Brasher MS3 LUDIN Mancilla Operation and Findings: Operative findings: The patient had large number of adhesions throughout her entire peritoneal cavity. Once the adhesions been taken down, the patient was noted to have a healed anterior abdominal wall defect which was still covered with mesh with no further recurrence in the mid abdomen. In the right lower abdomen the patient was found to have a 3.5-4 cm spigelian hernia which had inspissated fat within it, but no evidence of incarcerated bowel. Other than the adhesions in the hernia, no other abnormalities were noted. Operative procedure: Patient was brought to the operating room and after satisfactory general endotracheal anesthesia was obtained, the patient underwent placement of a TA P block by anesthesia. 0.25% Marcaine with epinephrine was then used to infiltrate the skin for local anesthesia. An incision was made in the left subcostal region and by blunt dissection the perineal cavity was entered with care being taken not to injure the underlying viscera. A 12 mm trocar was inserted into the peritoneal cavity and the balloon engaged. The abdomen was insufflated to 15 mmHg using carbon dioxide after which the camera was reinserted and visceral injury inspected for none being identified. The patient was noted to have a large number of adhesions as above. It was decided to place 2 more trochars, both of which were 5 mm one in the midline and one in the right upper quadrant under direct visualization. The bowel was checked for and found to be uninvolved with the upper abdominal adhesions. These adhesions were taken down sharply with the EndoShears. The dissection carried down to the previous hernia repair which was completely uncovered and found to be intact. The filmy adhesions were completely taken down from the area around the spigelian hernia to uncover the peritoneum. With blunt dissection as well as sharp dissection all the adhesions and a 14-15 cm area were taken down to allow room for the mesh. Once these adhesions been taken down in an 11.5 mm round ventral light ST mesh was selected for repair. It was rolled on itself echo deployment system, wet with saline and then placed within the peritoneal cavity without problem. The mesh was unfurled and located in the right lower quadrant. Using a [place] suture passer the insufflation tubing was brought through the anterior abdominal wall. The insufflation tubing was then used to inflate the backbone which was then brought into close approximation the anterior abdominal wall without problem. It was held in place at the level of the skin with a hemostat. Using absorbable tacks the mesh was secured into place circumferentially after which the inflatable backbone was released and then brought out the 12 mm port and discarded. The remainder of the mesh was then completely fixated to the anterior abdominal wall with the absorbable tacks. Once the repair was complete , the hernia was seen to be covered in all directions by at least 5 cm. The mesh was seen to be flat against the abdominal wall. Hemostasis was checked for and found be satisfactory. The carbon dioxide was then vented as completely as possible the atmosphere. The ports removed and the 12 mm fascial defect was closed with interrupted 0 Vicryl suture. Skin was closed with interrupted 4-0 PDS subcutaneous stitches. Steri-Strips were applied and the patient was then awakened and taken from the operating room, in satisfactory condition, having tolerated the procedure without problem. Estimated blood loss was less than 10 mL's. The instrument, sponge, needle counts were reported as being correct 2 at the end of the procedure. Sunil Easton MD Oct 05, 2016 16:11
[2016-10-05 16:55] VITALS: BP 112/68; PULSE 89; RESP 20; TEMP 97.5; O2SAT 95
== END | disposition home or self-care (01) ==
LOC: HSDC 09:48
PROVIDERS: ATTEND Surgery
DX: K43.9 Ventral hernia without obstruction or gangrene (principal); K66.0 Peritoneal adhesions (postprocedural) (postinfection); J44.9 Chronic obstructive pulmonary disease, unspecified; J45.909 Unspecified asthma, uncomplicated; I10 Essential (primary) hypertension; B18.2 Chronic viral hepatitis C; K21.9 Gastro-esophageal reflux disease without esophagitis; M79.7 Fibromyalgia; F41.9 Anxiety disorder, unspecified; M54.16 Radiculopathy, lumbar region; G47.33 Obstructive sleep apnea (adult) (pediatric); M81.0 Age-related osteoporosis without current pathological fracture
CPT/HCPCS: 00752; 00790; 49329; 49652; C1781; C9290; J0131; J0690; J1170; J1885; J2370; J2405; J2710; J3010; J7120